=== PATIENT | female | born 1955 | race Caucasian/White ===

== ENCOUNTER 2017-04-07 07:19 | Day surgery (SDC) | payer OTHER ==
[~2017-04-07 07:19] MED LIST: Lactated Ringers 1,000 ML IV SCH; Lidocaine 1%/Sod Bicarbonate in NS 8.4% 1 ML Syringe PRN; Sodium Chloride 0.9% 10 ML Syringe FLUSH PRN
--- NOTE | 2017-04-07 07:59 | PCM.PREANE ---
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) Other: Reports: Easy Bruising - Physical Assessment NPO Status Date: 04/07/17 NPO Status Time: 00:01 Pulse: 92 O2 Sat by Pulse Oximetry: 93 Respiratory Rate: 18 Blood Pressure: 144/94 Temperature: 35.9 C Height: 1.7 m Weight: 58.06 kg ASA Class: 2 Mental Status: Alert & Oriented x3 Airway Class: Mallampati = 2 Dentition: Reports: Normal Dentition Thyro-Mental Finger Breadths: 3 Mouth Opening Finger Breadths: 3 ROM/Head Extension: Full Lungs: Clear to auscultation, Normal respiratory effort Cardiovascular: Regular Rate, Regular Rhythm - Allergies Allergies/Adverse Reactions: Allergies Allergy/AdvReac Type Severity Reaction Status Date / Time aprepitant [From Emend] Allergy Cannot Verified 04/06/17 15:43 Remember fosaprepitant [From Emend] Allergy Cannot Verified 04/06/17 15:43 Remember Penicillins Allergy Cannot Verified 04/06/17 15:43 Remember - Blood Blood Available: No Product(s) Available: None - Acknowledgements Anesthesia Type Planned: MAC Pt an Appropriate Candidate for the Planned Anesthesia: Yes Alternatives and Risks of Anesthesia Discussed w Pt/Guardian: Yes Pt/Guardian Understands and Agrees with Anesthesia Plan: Yes PreAnesthesia Questionnaire HEENT History: Reports: Allergic Rhinitis, Impaired Vision, Other (See Below) Other HEENT History: wears glasses, impacted cerumen Cardiovascular History: Reports: High Cholesterol Respiratory History: Reports: None Genitourinary History: Reports: None INVESTIGATIVE ASSISTANT History: Reports: None Musculoskeletal History: Reports: Arthritis Neurological History: Reports: None Psychiatric History: Reports: None Endocrine/Metabolic History: Reports: None Hematologic History: Reports: None Immunologic History: Reports: None Oncologic (Cancer) History: Reports: Breast Dermatologic History: Reports: None - Past Surgical History HEENT Surgical History: Reports: Tonsillectomy GI Surgical History: Reports: Appendectomy, Cholecystectomy, Colonoscopy Musculoskeletal Surgical History: Reports: Other (See Below) Other Musculoskeletal Surgeries/Procedures:: foot surgery Oncologic Surgical History: Reports: Mastectomy - SUBSTANCE USE Smoking Status *Q: Former Smoker Second Hand Smoke Exposure: No Recreational Drug Use History: No - HOME MEDS Home Medications: Home Meds Anastrozole [Anastrozole] 1 mg PO DAILY 04/06/17 [History] Multivitamin [Poly-Vitamin] 1 tab PO DAILY 04/06/17 [History] - CURRENT (IN HOUSE) MEDS Current Meds: Current Medications Lactated Ringer's (Ringers, Lactated) 1,000 mls @ 125 mls/hr IV ASDIRECTED MARIBEL Stop: 04/07/17 23:00 Lidocaine/Sodium Bicarbonate (Buffered Lidocaine 1% In Ns 8.4%) 0.25 ml .XX ONETIME PRN PRN Reason: Prior to IV Start Stop: 04/07/17 18:00 Sodium Chloride (Saline Flush) 10 ml FLUSH ASDIRECTED PRN PRN Reason: Keep Vein Open Stop: 04/07/17 18:00
[2017-04-07] MEDS ORDERED: Propofol 200 MG/20 ML SDV ONE ×3 (08:34→09:42)
[2017-04-07] MEDS ORDERED: fentaNYL 100 MCG/2 ML SDV ONE (08:34)
--- NOTE | 2017-04-07 09:09 | PCM.OPNOTE ---
- General Post-Op/Procedure Note Date of Surgery/Procedure: 04/07/17 Operative Procedure(s): Colonoscopy with descending colonic and rectal polypectomy with cold forceps Findings: 1. Anal skin tags 2. Diminutive polyps of the rectum and descending colon 3. Sigmoid diverticulosis Poor bowel prep especially the cecum. Pre Op Diagnosis: Screening colonoscopy with a history of colon polyps Post-Op Diagnosis: 1. Anal skin tags. 2. Sigmoid diverticulosis. 3. Diminutive rectal and descending colonic polyps Anesthesia Technique: MAC, Moderate sedation Primary Surgeon: Pola Espinosa Pathology: Descending colonic and rectal polyps EBL in mLs: 0 Complications: None Condition: Good Free Text/Narrative:: After adequate IV sedation and analgesia was obtained with monitoring the patient was placed on her left side. Perianal inspection revealed the anal tags. Digital rectal examination was unremarkable. A lubricated colonoscope was inserted into the rectum then advanced under direct vision to the cecum. The cecum was poorly prepped. Gross lesions could only be seen and were negative. The right colon and transverse colons were endoscopically normal with no mass lesions or inflammatory changes seen. There was a diminutive polyp within the descending colon less than 5 mm in diameter which was removed with cold forceps. The sigmoid had scattered uncomplicated diverticuli with some hypertrophy of the circular musculature. Within the mid rectum there was a diminutive polyp which was also removed with cold forceps. Air was removed as I finished the procedure. Environmental Conservation Professor photographs were taken for the patient for the record. There were no procedural complications.
--- NOTE | 2017-04-07 09:10 | PCM48HPAN ---
Post Anesthesia Note - EVALUATION WITHIN 48HRS OF ANESTHETIC Vital Signs in Normal Range: Yes Patient Participated in Evaluation: Yes Respiratory Function Stable: Yes Airway Patent: Yes Cardiovascular Function Stable: Yes Hydration Status Stable: Yes Pain Control Satisfactory: Yes Nausea and Vomiting Control Satisfactory: Yes Mental Status Recovered: Yes
[2017-04-07 09:20] VITALS: BP 151/78
== END 2017-04-07 09:30 | disposition home or self-care (01) ==
LOC: JD.SDS 07:19
PROVIDERS: ATTEND Surgery
DX: Z12.11 Encounter for screening for malignant neoplasm of colon (principal); D12.4 Benign neoplasm of descending colon; K62.1 Rectal polyp; Z86.010 Personal history of colon polyps; K57.30 Diverticulosis of large intestine without perforation or abscess without bleeding; K64.4 Residual hemorrhoidal skin tags; E78.00 Pure hypercholesterolemia, unspecified; Z88.0 Allergy status to penicillin; Z88.8 Allergy status to other drugs, medicaments and biological substances; Z87.891 Personal history of nicotine dependence; Z79.899 Other long term (current) drug therapy; Z90.49 Acquired absence of other specified parts of digestive tract; Z98.890 Other specified postprocedural states
CPT/HCPCS: 45380; 88305; J3010; J7120; 00810; J2704

== ENCOUNTER 2020-05-02 09:51 | Day surgery (SDC) | payer MEDICARE, BC ==
[~2020-05-02 09:51] MED LIST changes: +Lidocaine 1%/Sod Bicarbonate in NS 8.4% 1 ML Syringe IDERM PRN; -Lidocaine 1%/Sod Bicarbonate in NS 8.4% 1 ML Syringe PRN
--- NOTE | 2020-05-02 10:33 | PCM.PREANE ---
Preanesthetic Assessment - Anesthesia/Transfusion/Family Hx Anesthesia History: No Prior Anesthesia Type of Anesthesia Reaction: Other (see below) (SRAVANTHI) Family History of Anesthesia Reaction: No Transfusion History: No Prior Transfusion(s) - Review of Systems General: No Symptoms Pulmonary: No Symptoms Cardiovascular: No Symptoms Gastrointestinal: No Symptoms Neurological: No Symptoms Other: Reports: None - Physical Assessment NPO Status Date: 05/02/20 NPO Status Time: 04:30 ASA Class: 2 Mental Status: Alert & Oriented x3 Airway Class: Mallampati = 2 Dentition: Reports: Normal Dentition Thyro-Mental Finger Breadths: 3 Mouth Opening Finger Breadths: 3 ROM/Head Extension: Full Lungs: Clear to Auscultation, Normal Respiratory Effort, Decreased Breath Sounds Cardiovascular: Regular Rate, Regular Rhythm - Allergies Allergies/Adverse Reactions: Allergies Allergy/AdvReac Type Severity Reaction Status Date / Time aprepitant [From Emend] Allergy Headache Verified 05/01/20 13:06 fosaprepitant [From Emend] Allergy Headache Verified 05/01/20 13:06 Penicillins Allergy Cannot Verified 05/01/20 13:06 Remember - Acknowledgements Anesthesia Type Planned: MAC Pt an Appropriate Candidate for the Planned Anesthesia: Yes Alternatives and Risks of Anesthesia Discussed w Pt/Guardian: Yes Pt/Guardian Understands and Agrees with Anesthesia Plan: Yes PreAnesthesia Questionnaire HEENT History: Reports: Allergic Rhinitis, Impaired Vision, Other (See Below) Other HEENT History: wears glasses, impacted cerumen Cardiovascular History: Reports: High Cholesterol, Hypertension Respiratory History: Reports: None Gastrointestinal History: Reports: GERD Genitourinary History: Reports: None BRICK PICKER History: Reports: None Musculoskeletal History: Reports: Arthritis Neurological History: Reports: None Psychiatric History: Reports: None Endocrine/Metabolic History: Reports: None Hematologic History: Reports: None Immunologic History: Reports: None Oncologic (Cancer) History: Reports: Breast Dermatologic History: Reports: None - Past Surgical History HEENT Surgical History: Reports: Tonsillectomy GI Surgical History: Reports: Appendectomy, Cholecystectomy, Colonoscopy Musculoskeletal Surgical History: Reports: Other (See Below) Other Musculoskeletal Surgeries/Procedures:: foot surgery Oncologic Surgical History: Reports: Mastectomy - SUBSTANCE USE Smoking Status *Q: Former Smoker Tobacco Use Within Last Twelve Months: Other (See Below) Recreational Drug Use History: No - HOME MEDS Home Medications: Home Meds Anastrozole 1 mg PO DAILY 04/06/17 [History] Multivitamin [Poly-Vitamin] 1 tab PO DAILY 04/06/17 [History] Aspirin [Adult Aspirin Regimen] 81 mg PO DAILY 05/01/20 [History] Cholecalciferol (Vitamin D3) [Vitamin D3] 2,000 units PO DAILY 05/01/20 [ History] Fish Oil/Howard-3 Fatty Acids [Fish Oil 1,000 MG] 1 gm PO DAILY 05/01/20 [History] lisinopriL [Lisinopril] 10 mg PO DAILY 05/01/20 [History] - CURRENT (IN HOUSE) MEDS Current Meds: Current Medications Lactated Ringer's (Ringers, Lactated) 1,000 mls @ 125 mls/hr IV ASDIRECTED MARIBEL Lidocaine/Sodium Bicarbonate (Buffered Lidocaine 1% In Ns 8.4%) 0.25 ml IDERM ONETIME PRN PRN Reason: Prior to IV Start Stop: 05/02/20 23:00 Sodium Chloride (Saline Flush) 10 ml FLUSH ASDIRECTED PRN PRN Reason: Keep Vein Open Stop: 05/02/20 23:00
[2020-05-02] MEDS ORDERED: Lidocaine 1% 4 ML ONE (10:39)
[2020-05-02] MEDS ORDERED: Propofol 200 MG/20 ML SDV ONE ×3 (10:39→13:05)
--- NOTE | 2020-05-02 13:23 | PCM48HPAN ---
Post Anesthesia Note - EVALUATION WITHIN 48HRS OF ANESTHETIC Vital Signs in Normal Range: Yes Patient Participated in Evaluation: Yes Respiratory Function Stable: Yes Airway Patent: Yes Cardiovascular Function Stable: Yes Hydration Status Stable: Yes Pain Control Satisfactory: Yes Nausea and Vomiting Control Satisfactory: Yes Mental Status Recovered: Yes Vital Signs: Last Vital Signs Temp 37.1 C 05/02/20 09:45 Pulse 78 05/02/20 09:45 Resp 16 05/02/20 09:45 BP 129/78 05/02/20 09:45 Pulse Ox 95 05/02/20 09:45
[2020-05-02 13:31] VITALS: BP 111/57; PULSE 63
--- NOTE | 2020-05-02 14:24 | PCM.PRNOTE ---
- Free Text/Narrative Note: Date: 05/02/2020 Procedure: screening colonoscopy Endoscopist: Luis Eduardo Almaraz MD Findings: excellent prep. Significant diverticular disease of the sigmoid colon. External hemorrhoidal skin tags. No polyps identified. Detailed Report: The patient was taken to the endoscopy suite and placed in left lateral decubitu s position. Time out was performed and monitored anesthesia care was initiated. The anus was inspected and external hemorrhoidal skin tags observed. Digital exam was unremarkable. The colonoscope was inserted and advanced to the cecum. The appendiceal orifice was seen. Prep was excellent. The scope was sloewly withdrawn and mucosal surfaces carefully inspected. No polyps were identified. There was significant diverticular disease involving the sigmoid colon. No abnormality was noted on retroflexion within the rectum. Air was suctioned and the scope withdrawn. The patient tolerated the procedure well.
== END 2020-05-02 13:52 | disposition home or self-care (01) ==
LOC: JD.SDS 09:51
PROVIDERS: ATTEND Surgery
DX: Z12.11 Encounter for screening for malignant neoplasm of colon (principal); K57.30 Diverticulosis of large intestine without perforation or abscess without bleeding; K64.4 Residual hemorrhoidal skin tags; E78.00 Pure hypercholesterolemia, unspecified; K21.9 Gastro-esophageal reflux disease without esophagitis; I10 Essential (primary) hypertension; M85.80 Other specified disorders of bone density and structure, unspecified site; Z88.0 Allergy status to penicillin; Z88.8 Allergy status to other drugs, medicaments and biological substances; Z98.890 Other specified postprocedural states; Z79.82 Long term (current) use of aspirin; Z79.899 Other long term (current) drug therapy; Z87.891 Personal history of nicotine dependence; Z80.0 Family history of malignant neoplasm of digestive organs
CPT/HCPCS: G0105; J2001; J2704; J7120

== ENCOUNTER 2021-10-31 16:05 | Emergency (ER) | payer MEDICARE, BC ==
[2021-10-31] MEDS ORDERED: Sodium Chloride 0.9% 10 ML Syringe FLUSH PRN (16:37)
[2021-10-31 18:03] VITALS: BP 178/85; PULSE 80
== END 2021-10-31 18:00 | disposition home or self-care (01) ==
LOC: JD.ED 16:05
DX: I10 Essential (primary) hypertension (principal); E78.00 Pure hypercholesterolemia, unspecified; M19.90 Unspecified osteoarthritis, unspecified site; Z88.8 Allergy status to other drugs, medicaments and biological substances; Z88.0 Allergy status to penicillin; Z79.82 Long term (current) use of aspirin; Z79.899 Other long term (current) drug therapy
CPT/HCPCS: 36415; 71045; 71045-26; 80053; 83735; 83880; 84484; 85025; 85610; 85730; 93005; 93010; 99284-25; 99285

== ENCOUNTER 2022-02-15 11:55 | Emergency (ER) | payer MEDICARE, BC ==
[2022-02-15 12:17] VITALS: BP 149/91; PULSE 90
[2022-02-15] MEDS ORDERED: Clindamycin HCl 150 MG Cap PO ONE (12:28)
== END 2022-02-15 12:43 | disposition home or self-care (01) ==
LOC: JD.ED 11:55
DX: K04.7 Periapical abscess without sinus (principal); E78.00 Pure hypercholesterolemia, unspecified; I10 Essential (primary) hypertension; K21.9 Gastro-esophageal reflux disease without esophagitis; Z88.0 Allergy status to penicillin; Z88.8 Allergy status to other drugs, medicaments and biological substances; Z79.82 Long term (current) use of aspirin; Z79.899 Other long term (current) drug therapy
CPT/HCPCS: 99282; A9270

== ENCOUNTER 2022-04-14 07:57 | Emergency (ER) | payer MEDICARE, BC ==
[2022-04-14] MEDS ORDERED: Sodium Chloride 0.9% 10 ML Syringe FLUSH PRN (09:01)
[2022-04-14 10:40] LABS: ESTIMATED GFR 81 mL/min (>60)
[2022-04-14 10:56] VITALS: BP 135/79; PULSE 62
[2022-04-14] MEDS ORDERED: Magnesium Oxide 400 MG Tab PO ONE (11:00)
== END 2022-04-14 11:27 | disposition home or self-care (01) ==
LOC: JD.ED 07:57
DX: R55 Syncope and collapse (principal); E87.1 Hypo-osmolality and hyponatremia; E83.42 Hypomagnesemia; E78.00 Pure hypercholesterolemia, unspecified; I10 Essential (primary) hypertension; K21.9 Gastro-esophageal reflux disease without esophagitis; Z88.0 Allergy status to penicillin; Z88.8 Allergy status to other drugs, medicaments and biological substances; Z79.82 Long term (current) use of aspirin; Z79.899 Other long term (current) drug therapy; Z20.822 Contact with and (suspected) exposure to COVID-19
CPT/HCPCS: 36415; 71045; 80053; 81003; 83735; 84295; 84484; 85025; 86140; 93005; 93225; 93226; 99284; A9270; J3490; U0002

== ENCOUNTER 2022-04-17 15:11 | Emergency (ER) | payer MEDICARE, BC ==
[2022-04-17] MEDS ORDERED: Sodium Chloride 0.9% 10 ML Syringe FLUSH PRN (15:20)
[2022-04-17 15:22] VITALS: BP 133/70; PULSE 89
[2022-04-17] MEDS ORDERED: Magnesium Sulfate/Water 4 GM in Premix Bag 1 BAG IV ONE (17:16)
== END 2022-04-17 20:27 ==
LOC: JD.ED 15:11
DX: I45.9 Conduction disorder, unspecified (principal); E78.00 Pure hypercholesterolemia, unspecified; I10 Essential (primary) hypertension; Z88.0 Allergy status to penicillin; Z88.8 Allergy status to other drugs, medicaments and biological substances; Z79.82 Long term (current) use of aspirin; Z79.899 Other long term (current) drug therapy; Z20.822 Contact with and (suspected) exposure to COVID-19
CPT/HCPCS: 36415; 80053; 83735; 85025; 93005; 96365; 96366; 99285; J3475; J3490; U0002; 93010; 99284

== ENCOUNTER 2023-06-29 06:57 | Day surgery (SDC) | payer MEDICARE, BC ==
[~2023-06-29 06:57] MED LIST changes: -Lidocaine 1%/Sod Bicarbonate in NS 8.4% 1 ML Syringe IDERM PRN; +Sodium Chloride 0.9% 10 ML Syringe FLUSH SCH
[2023-06-29] MEDS ORDERED: Lidocaine 1% 2 ML ONE (07:16)
[2023-06-29] MEDS ORDERED: Propofol 200 MG/20 ML SDV ONE (07:16)
[2023-06-29] MEDS ORDERED: Midazolam 1 MG/ML 2 ML SDV ONE (07:16)
[2023-06-29] MEDS ORDERED: Ondansetron 4 MG/2 ML SDV IVPUSH PRN (07:28)
[2023-06-29] MEDS ORDERED: fentaNYL 100 MCG/2 ML SDV ONE (07:53)
[2023-06-29 09:22] VITALS: BP 122/78; PULSE 74
== END 2023-06-29 09:02 | disposition home or self-care (01) ==
LOC: JD.SDS 06:57
PROVIDERS: ATTEND Specialist
DX: Z12.11 Encounter for screening for malignant neoplasm of colon (principal); K57.30 Diverticulosis of large intestine without perforation or abscess without bleeding; F41.9 Anxiety disorder, unspecified; J44.9 Chronic obstructive pulmonary disease, unspecified; I10 Essential (primary) hypertension; E78.00 Pure hypercholesterolemia, unspecified; M85.88 Other specified disorders of bone density and structure, other site; Z86.010 Personal history of colon polyps; K21.9 Gastro-esophageal reflux disease without esophagitis; Z80.0 Family history of malignant neoplasm of digestive organs; Z88.0 Allergy status to penicillin; Z88.8 Allergy status to other drugs, medicaments and biological substances; Z79.82 Long term (current) use of aspirin; Z79.899 Other long term (current) drug therapy; Z98.890 Other specified postprocedural states; Z87.891 Personal history of nicotine dependence
CPT/HCPCS: G0105; J2250; J2704; J3010; J7120; J3490